=== PATIENT | female | born 1965 | race Caucasian/White ===

== ENCOUNTER 2020-09-29 13:17 | Emergency (ER) | payer SELFPAY ==
[~2020-09-29] VITALS: Ht 165.1 cm; Wt 75.4 kg
[2020-09-29 13:35] VITALS: BP 124/65
--- NOTE | 2020-09-29 14:33 | RAD ---
Left foot 3 views portable: Reason for examination: Pain in left foot which radiates up leg. History of fracture one year ago. There are fractures approximately in the second and third metatarsal bones. These show minimal callus formation but there is some mild sclerosis at the fracture lines. No other sites of fracture or dislocation are seen. Joint spaces are maintained. IMPRESSION: Fractures proximally in the second and third metatarsal bones with sclerosis at the fracture lines but minimal callus. This may represent nonunion. Recommend clinical correlation. Electronically signed by: Zita Andujar MD (09/29/2020 2:31 PM) [id number]
--- NOTE | 2020-09-29 17:03 | PHYS DOC ---
Past Medical History Past Medical History: Sciatica, Other Additional Past Medical Histor: CHRONIC BACK Past Surgical History: Other Additional Past Surgical Histo: CARDIAC STENT Smoking Status: Never Smoker Alcohol Use: None General Adult EDM: Chief Complaint: FOOT INJURY PAIN HPI: HPI: Patient is a 54 year old female who presents to the ED today complaining of 5 out of 10 pain on top of the left foot described as sharp and intermittent. Symptoms have been going on for a week. Patient denies any injuries. She reports left foot fracture 2 years ago. States the pain is worse on touching her left foot. She states the pain radiates to her left lindsay. She states she is on morphine 100 mg twice daily for chronic low back pain and it is helping with this pain as well. Review of Systems: Review of Systems: Constitutional: Denies fever or chills. [] Musculoskeletal: Reports left foot pain Integument: Denies rash. [] Neurologic: Denies headache, focal weakness or sensory changes. Psychiatric: Denies depression or anxiety. [] Heart Score: Risk Factors: Risk Factors: DM, Current or recent (<one month) smoker, HTN, HLP, family history of CAD, obesity. Risk Scores: Score 0 - 3: 2.5% MACE over next 6 weeks - Discharge Home Score 4 - 6: 20.3% MACE over next 6 weeks - Admit for Clinical Observation Score 7 - 10: 72.7% MACE over next 6 weeks - Early Invasive Strategies Allergies: Allergies: Allergies Coded Allergies Type Severity Reaction Last Updated Verified No Known Drug Allergies 09/29/20 No Physical Exam: PE: Constitutional: Well developed, well nourished, no acute distress, non-toxic appearance. [] Skin: Warm, dry, no erythema, no rash. [] Back: No tenderness, no CVA tenderness. [] Extremities: Left foot with no obvious deformity. Tenderness on palpation of the top of the left foot. No navicular bone tenderness, no base of the fifth metatarsal tenderness on the left foot. Full range of motion to the left foot and toes. +2 left pedal pulse. Negative Homans' sign to the left lower extremity. Cap refill less than 2 seconds to left toes. There is a scab on the left medial ankle. No signs of infection. Neurologic: Alert and oriented X 3, normal motor function, normal sensory function, no focal deficits noted. [] Psychologic: Affect normal, judgement normal, mood normal. [] Current Patient Data: Vital Signs: Vital Signs Date Time Temp Pulse Resp B/P (MAP) Pulse Ox O2 Delivery O2 Flow Rate FiO2 09/29/20 13:35 98.0 81 18 124/65 (84) 97 Room Air 98.0 EKG: EKG: [] Radiology/Procedures: Radiology/Procedures: []PROCEDURE: FOOT LEFT 3V Left foot 3 views portable: Reason for examination: Pain in left foot which radiates up leg. History of fracture one year ago. There are fractures approximately in the second and third metatarsal bones. These show minimal callus formation but there is some mild sclerosis at the fracture lines. No other sites of fracture or dislocation are seen. Joint spaces are maintained. IMPRESSION: Fractures proximally in the second and third metatarsal bones with sclerosis at the fracture lines but minimal callus. This may represent nonunion. Recommend clinical correlation. Electronically signed by: Zita Andujar MD (09/29/2020 2:31 PM) [id number] DICTATED and SIGNED BY: ZITA ANDUJAR MD DATE: 09/29/20 [id number] 0 Course & Med Decision Making: Course & Med Decision Making Pertinent Labs and Imaging studies reviewed. (See chart for details) This is a 54-year-old female patient presenting to the ED today with left foot pain that began a week ago, no known injury. She has previous left foot fractures. Left foot x-rays interpreted by radiologist were noted fo-Fractures proximally in the second and third metatarsal bones with sclerosis at the fracture lines but minimal callus. This may represent nonunion. Patient is aware of the above fractures. Patient was concerned about having DVT, we ordered a venous Doppler. She had eloped from the ED. Dragon Disclaimer: Dragon Disclaimer: This electronic medical record was generated, in whole or in part, using a voice recognition dictation system. Departure Departure Impression: Primary Impression: Left foot pain Disposition: 07 AMA/ELOPED/LWBS Condition: STABLE Referrals: UNKNOWN PCP NAME (PCP) XENA COLBY APRN Sep 29, 2020 17:03
== END 2020-09-29 16:26 | disposition left against medical advice (07) ==
LOC: ER 13:17
DX: M79.672 Pain in left foot (principal); Z95.5 Presence of coronary angioplasty implant and graft
CPT/HCPCS: 73630; 99283

== ENCOUNTER 2020-10-03 15:06 | Emergency (ER) | payer SELFPAY ==
[~2020-10-03] VITALS: Ht 165.1 cm; Wt 72.0 kg
[2020-10-03 15:25] VITALS: BP 153/69
--- NOTE | 2020-10-03 15:54 | PHYS DOC ---
Past Medical History Past Medical History: Sciatica, Other Additional Past Medical Histor: CHRONIC BACK Past Surgical History: Other Additional Past Surgical Histo: CARDIAC STENT Smoking Status: Current Every Day Smoker Alcohol Use: None General Adult EDM: Chief Complaint: FOOT INJURY PAIN HPI: HPI: Patient is a 54 year old female who presents with was here on September 29 for foot pain that has gotten worse with dorsal foot swelling and radiation of pain up into the calf. She states she is having medial calf pain that is sharp especially when she is up and walking. She states that when she was here they forgot about her and short of air. She was never given any pain medicine for follow-up care. Looking back in the chart the patient eloped. Patient has a history of cardiac stent, chronic back pain, smoker, sciatica. Review of Systems: Review of Systems: Constitutional: Denies fever or chills. [] Eyes: Denies change in visual acuity. [] HENT: Denies nasal congestion or sore throat. [] Respiratory: Denies cough or shortness of breath. [] Cardiovascular: Denies chest pain or edema. [] GI: Denies abdominal pain, nausea, vomiting, bloody stools or diarrhea. [] : Denies dysuria. [] Musculoskeletal: Denies back pain. + Left foot joint pain. + Left calf [] Integument: Denies rash. [] Neurologic: Denies headache, focal weakness or sensory changes. [] Endocrine: Denies polyuria or polydipsia. [] Lymphatic: Denies swollen glands. [] Psychiatric: Denies depression or anxiety. [] Heart Score: Risk Factors: Risk Factors: DM, Current or recent (<one month) smoker, HTN, HLP, family history of CAD, obesity. Risk Scores: Score 0 - 3: 2.5% MACE over next 6 weeks - Discharge Home Score 4 - 6: 20.3% MACE over next 6 weeks - Admit for Clinical Observation Score 7 - 10: 72.7% MACE over next 6 weeks - Early Invasive Strategies Allergies: Allergies: Allergies Coded Allergies Type Severity Reaction Last Updated Verified No Known Drug Allergies 09/29/20 No Physical Exam: PE: Constitutional: Well developed, well nourished, no acute distress, non-toxic appearance. [] HENT: Normocephalic, atraumatic, bilateral external ears normal, oropharynx moist, no oral exudates, nose normal. [] Eyes: PERRLA, EOMI, conjunctiva normal, no discharge. [] Neck: Normal range of motion, no tenderness, supple, no stridor. [] Cardiovascular:Heart rate regular rhythm, no murmur [] Lungs & Thorax: Bilateral breath sounds clear to auscultation [] Abdomen: Bowel sounds normal, soft, no tenderness, no masses, no pulsatile masses. [] Skin: Warm, dry, no erythema, no rash. [] Back: No tenderness, no CVA tenderness. [] Extremities: Left dorsal foot tenderness, no cyanosis, no clubbing, ROM intact, left dorsal foot 1-2+ edema. [] Neurologic: Alert and oriented X 3, normal motor function, normal sensory function, no focal deficits noted. [] Psychologic: Affect normal, judgement normal, mood normal. [] Current Patient Data: Vital Signs: Vital Signs Date Time Temp Pulse Resp B/P (MAP) Pulse Ox O2 Delivery O2 Flow Rate FiO2 10/03/20 15:25 98.1 68 12 153/69 (97) 97 Room Air 98.1 EKG: EKG: [] Radiology/Procedures: Radiology/Procedures: [] Impression: [facility] [address] [place], [place] [id number] IMAGING REPORT Signed PATIENT: LEELA TAI ACCOUNT: [id number] : 1965 LOCATION: ER AGE: 54 SEX: F EXAM STATUS: REG ER ORD. PHYSICIAN: LUIZA HERNANDEZ APRN REASON: PAIN IN CALF WITH SWELLING PROCEDURE: VENOUS LOWER EXTREMITY LEFT US DPLX VENOUS EXTREMITY LOWER LT 10/03/2020 3:37 PM Clinical Information: Left calf pain and swelling Comparison: None. Technique: Multiple grayscale, color Doppler, and spectral Doppler sonographic images of the lower extremity venous structures were obtained. Findings: The left common femoral, femoral, and popliteal veins exhibit normal compression, respiratory phasicity, and augmentation. No intraluminal thrombi are identified. Color Doppler flow is demonstrated in the left posterior tibial veins. Greater saphenous vein patent at the saphenofemoral junction. Impression: 1. No evidence of deep venous thrombosis. Electronically signed by: Ousmane Ballesteros MD (10/03/2020 4:53 PM) [facility] DICTATED and SIGNED BY: OUSMANE BALLESTEROS MD DATE: 10/03/20 [id number] 0 Course & Med Decision Making: Course & Med Decision Making Pertinent Labs and Imaging studies reviewed. (See chart for details) See HPI. X-rays done on September 29 shows below. I will go ahead and scan the patient's left calf for DVT. There is no swelling but there is tenderness to the lateral and medial calf areas. Skin is pink warm and dry. Pedal pulses strong present. She does have tenderness over the dorsal foot. She denies injury. Patient will be placed in a walking boot. Cap refill less than 2 seconds. Alert and oriented x4. Patient is ambulatory with a steady gait but limping on the left foot. Ultrasound shows no acute findings. Patient to follow-up with orthopedics. IMPRESSION: Fractures proximally in the second and third metatarsal bones with sclerosis at the fracture lines but minimal callus. This may represent nonunion. Recommend clinical correlation. [] Julien Disclaimer: Julien Disclaimer: This electronic medical record was generated, in whole or in part, using a voice recognition dictation system. Departure Departure Impression: Primary Impression: Left foot pain Additional Impression: Pain of left calf Disposition: 01 DC HOME SELF CARE/HOMELESS Condition: STABLE Referrals: NO PCP (PCP) PATRICIA GUZMAN MD Patient Instructions: Foot Fracture Additional Instructions: Follow-up with orthopedic as scheduled. Use ice elevation to help with any kind of swelling or pain. Take medication as prescribed and with food. Do not drive or drink alcohol or work on medication as it will make you sleepy. Scripts Hydrocodone/Apap 5-325 (NORCO 5-325 TABLET) 1 Each Tablet 1 TAB PO PRN Q6HRS PRN for PAIN, #12 TAB 0 Refills Prov: LUIZA HERNANDEZ APRN 10/03/20 LUIZA HERNANDEZ [employer] Oct 03, 2020 15:54
--- NOTE | 2020-10-03 16:55 | RAD ---
US DPLX VENOUS EXTREMITY LOWER LT 10/03/2020 3:37 PM Clinical Information: Left calf pain and swelling Comparison: None. Technique: Multiple grayscale, color Doppler, and spectral Doppler sonographic images of the lower ex tremity venous structures were obtained. Findings: The left common femoral, femoral, and popliteal veins exhibit normal compression, respiratory phasici ty, and augmentation. No intraluminal thrombi are identified. Color Doppler flow is demonstrated in t he left posterior tibial veins. Greater saphenous vein patent at the saphenofemoral junction. Impression: 1. No evidence of deep venous thrombosis. Electronically signed by: Irish Kovacs MD (10/03/2020 4:53 PM) [facility]
[2020-10-03] MEDS ORDERED: HYDR-3164 PO (16:59)
== END 2020-10-03 17:37 | disposition home or self-care (01) ==
LOC: ER 15:06
DX: M79.671 Pain in right foot (principal); M79.662 Pain in left lower leg; R60.0 Localized edema; F17.200 Nicotine dependence, unspecified, uncomplicated; Z98.890 Other specified postprocedural states
CPT/HCPCS: 93971; 99284